=== PATIENT | male | born 1940 | race Caucasian/White ===

== ENCOUNTER 2016-11-21 16:39 | Emergency (ER) | payer OTHER ==
[~2016-11-21] VITALS: Ht 172.7 cm; Wt 74.4 kg
--- NOTE | ~2016-11-21 | CT4 ---
[facility] A Service of [facility] RADIOLOGY TEXT RESULTS PATIENT: TRAVIS SHEARER LOCATION: SED : 42 UNIT #: [id number] AGE: [address]: Julius Hartman MD SEX: M ORDER DR: [id number] [place] [id number] E MR#: [id number] Acc #: [id number] NAME: TRAVIS SHEARER : 1940 SEX: M STUDY DATE/TIME: 11/21/2016 18:32 UNIT: SED ROOM: STUDY DESCRIPTION: CT Abd and Pelv Wo Cont Attending Physician: Julius Hartman M.D. Ordering Physician: Marquita Neil M.D. Primary Care Physician: Lee Garg M.D. MEDICAL IMAGING REPORT This report is preliminary unless electronic signature is present. EXAM CT abdomen and pelvis without contrast HISTORY Right groin pain for [address] abdomen and pelvis was performed with oral contrast and without IV contrast. The CT exam was performed with one or more of the following radiation dose reduction techniques: automatic exposure control, adjustment of mA and/or kV according to patient size, and iterative reconstruction. CT ABDOMEN Incidental 2.7 cm cyst in the posterior hepatic dome. Remainder of the liver is unremarkable. No biliary dilatation. The gallbladder, spleen, pancreas, and adrenal glands are unremarkable. Mild lobulation in both kidneys could be developmental or secondary to scarring, unchanged compared to 01/28/2013. Incidental small cyst medial mid right kidney. No renal calculi. No perinephric stranding. No bowel dilatation. Normal appendix. CT PELVIS Moderately severe prostatic enlargement. No inguinal hernia. Incidental metal pellet in the right lower quadrant adjacent to the distal ileum. No free fluid. No inflammatory stranding. IMPRESSION 1. Moderately severe prostatic enlargement. 2. No inguinal hernia. [facility] A Service [facility] RADIOLOGY TEXT RESULTS PATIENT: TRAVIS SHEARER LOCATION: SED : 41 UNIT #: [id number] AGE: [address]: Julius Hartman MD SEX: M ORDER DR: 3. Normal appendix. 4. No bowel obstruction or urinary obstruction. Dictated by... Oli Barnes M.D. THIS IS AN ELECTRONICALLY VERIFIED REPORT Oli Barnes M.D. at 11/22/2016 11:43 PM [facility]/conrad TD: 11/22/2016 08:03 JOB #: [id number] MEDICAL IMAGING REPORT Page 1 of 1
[~2016-11-21 16:39] MED LIST: ACETAMINOPHEN PO; ASPIRIN PO; DICLOFENAC PO; KROGER PHARMACY; LOTREL PO; PLAVIX PO; VICODIN 5/500 T1 TAB PO; VYTORIN PO
[2016-11-21] MEDS ORDERED: [UNRECOGNIZED DRUG - OTHER] (16:49)
[2016-11-21] MEDS ORDERED: FENOFIBRATE145 M1 PO (16:49)
[2016-11-21] MEDS ORDERED: LIPITOR20 MG PO (16:49)
[2016-11-21] MEDS ORDERED: NIACIN500 M1 PO (16:50)
[2016-11-21 17:30] LABS: URINE SOURCE CLEAN CATCH
[2016-11-21 17:32] LABS: BASOPHIL# 0.1 X10e3 (0-0.3); BASOPHIL% 0.9 % (0-2.5); EOSINOPHIL# 0.3 X10e3 (0-0.7); EOSINOPHIL% 5.2 % (0.0-7.0); HEMATOCRIT 42.5 % (38.0-50.0); HEMOGLOBIN 14.4 gm/dL (13.0-16.0); LYMPHOCYTE# 1.5 X10e3 (1.0-3.5); LYMPHOCYTE% 22.9 % (17.0-45.0); MEAN CELL VOLUME 92.1 FL (83-96); MEAN CORPUSCULAR HEMOGLOBIN 31.2 PG (28-34); MEAN CORPUSCULAR HGB CONC 33.9 g/dL (30-36); MEAN PLATELET VOLUME 7.4 FL (6.5-11.5); MONOCYTE# 0.7 X10e3 (0-1.0); MONOCYTE% 10.4 % (3.0-12.0); NEUTROPHIL# 3.9 X10e3 (1.5-7.1); NEUTROPHIL% 60.6 % (40-75); PLATELET COUNT 195 X10e3 (140-420); RED BLOOD COUNT 4.62 X10e (3.90-5.60); RED CELL DISTRIBUTION WIDTH 13.8 % (11.0-15.5); WHITE BLOOD COUNT 6.5 X10e3 (4.0-10.5)
[2016-11-21 17:33] LABS: URINE APPEARANCE CLEAR; URINE BILIRUBIN NEG (NEG); URINE BLOOD TRACE-LYSED (NEG); URINE COLOR YELLOW; URINE GLUCOSE NEG (NORM); URINE KETONE NEG (NEG); URINE LEUKOCYTE ESTERASE NEG (NEG); URINE NITRATE NEG (NEG); URINE PH 6.5 (5-8); URINE PROTEIN NEG (NEG); URINE SPECIFIC GRAVITY 1.015 (1.003-1.035); URINE UROBILINOGEN 0.2 MG/DL (NORM)
[2016-11-21 17:44] LABS: PROTHROMBIN TIME (PATIENT) 10.8 SECONDS (9.5-12.4)
[2016-11-21 17:51] LABS: PARTIAL THROMBOPLASTIN TIME 29.1 SECONDS (25.6-38.1)
[2016-11-21 17:52] LABS: ALBUMIN SERUM 4.9 g/dL (3.5-5.0); BILIRUBIN, DIRECT 0.1 mg/dL (0.0-0.2); BILIRUBIN,INDIRECT 0.5 mg/dL (0.0-0.9); BILIRUBIN,TOTAL 0.6 mg/dL (0.2-2.0); BUN/CREATININE RATIO 12.3; CALCIUM SERUM 9.3 mg/dL (8.4-10.2); CREATININE SERUM 1.3 mg/dL (0.6-1.4); GLOM FILT RATE Estimated 53.4 mL/min (>60); POTASSIUM 4.2 mmol/L (3.5-5.1); PROTEIN TOTAL SERUM 6.8 g/dL (6.0-8.3)
[2016-11-21 17:53] LABS: DIFF IND NO
[2016-11-21 17:54] LABS: MICRO INDICATED? YES
[2016-11-21 17:56] LABS: CULTURE INDICATED? NO; URINE BACTERIA NEG (NEG); URINE RBC 0-2 /[HPF] (0-2); URINE WBC 0-2 /[HPF] (0-5)
== END 2016-11-21 19:26 | disposition home or self-care (01) ==
LOC: SED 16:39
PROVIDERS: Student in an Organized Health Care Education/Training Program
DX: R10.31 Right lower quadrant pain (principal); E78.5 Hyperlipidemia, unspecified; Z88.8 Allergy status to other drugs, medicaments and biological substances; Z79.899 Other long term (current) drug therapy
CPT/HCPCS: 36415; 74176; 80048; 80076; 81003; 85025; 85610; 85730; 96374; 99284; J2405